=== PATIENT | female | born 1990 | race Caucasian/White ===

== ENCOUNTER → 2016-08-01 | Outpatient (CLI) | payer BC ==
[~2016-08-01] MED LIST: ACET325T33 PO; AZIT250T94 PO; FAMO40TA52 PO; IBUP-1542 PO; IBUP800T25 PO; NPH10OT RIGHT EAR; PERCOCET PO; PREN-39 PO
[2016-08-01 16:35] LABS: ADD SCAN DIFF NO
[2016-08-01 16:38] LABS: BASOPHILS % 0.3 % (0.0-2.0); EOSINOPHILS # 0.2 10^3/ul (0.0-0.5); EOSINOPHILS % 1.6 % (0.0-7.0); HEMOGLOBIN 12.4 g/dl (12.0-16.0); LYMPHOCYTES % 25.6 % (15.0-51.0); MEAN CORPUSCULAR HEMOGLOBIN 28.6 pg (29.0-33.0); MEAN CORPUSCULAR HGB CONC 32.6 g/dl (32.0-37.0); MEAN CORPUSCULAR VOLUME 87.6 fl (82.0-101.0); MEAN PLATELET VOLUME 11.3 fl (7.4-10.4); MONOCYTE # 0.6 10^3/ul (0.3-0.9); MONOCYTES % 4.9 % (0.0-11.0); NEUTROPHIL # 7.8 10^3/ul (1.6-7.5); NEUTROPHILS % 67.3 % (39.0-77.0); PLATELET COUNT 249 10^3/UL (140-415); RED BLOOD COUNT 4.34 10^6/ul (4.20-5.40); RED CELL DISTRIBUTION WIDTH 13.1 % (11.5-14.5); WHITE BLOOD COUNT 11.6 10^3/ul (4.8-10.8)
[2016-08-01 16:43] LABS: ADD UMIC YES; URINE BILIRUBIN (Dip) NEGATIVE (NEGATIVE); URINE BLOOD (Dip) NEGATIVE (NEGATIVE); URINE COLOR LT. YELLOW (YELLOW); URINE GLUCOSE (Dip) NEGATIVE (NEGATIVE); URINE KETONES (Dip) NEGATIVE (NEGATIVE); URINE LEUKOCYTE ESTERASE (Dip) 1+ (NEGATIVE); URINE NITRITE (Dip) NEGATIVE (NEGATIVE); URINE TOTAL PROTEIN (Dip) NEGATIVE (NEGATIVE); URINE UROBILINOGEN (Dip) 0.2 E.U./dL (0.1-1.0)
[2016-08-01 16:52] LABS: BACTERIA,URINE MODERATE; URINE RBCS 0-2 /HPF (0)
[2016-08-01 17:00] LABS: ALBUMIN 4.1 g/dl (3.3-4.9); ALBUMIN/GLOBULIN RATIO 1.1; BILIRUBIN,INDIRECT 0.3 mg/dl (0-1.1); BILIRUBIN,TOTAL 0.3 mg/dl (0.2-1.3); CREATININE 0.68 mg/dl (0.44-1.00); POTASSIUM 4.3 mmol/L (3.5-5.1); TOTAL PROTEIN 7.8 g/dl (6.1-8.1)
== END | disposition home or self-care (01) ==
LOC: LAB 16:22
PROVIDERS: ATTEND Internal Medicine
DX: R31.9 Hematuria, unspecified (principal)
CPT/HCPCS: 80053; 81001; 81003; 85025

== ENCOUNTER 2016-09-10 06:20 | Day surgery (SDC) | payer BC ==
[~2016-09-10] VITALS: Ht 157.5 cm; Wt 61.3 kg
[2016-09-10 06:51] VITALS: Ht 157.5 cm; Wt 61.3 kg
[2016-09-10] MEDS ORDERED: LIDOCAINE 2% (SDV) 5 ML INJ ONE (07:59)
[2016-09-10] MEDS ORDERED: MIDAZOLAM 1 MG/ML 2 ML INJ ONE (07:59)
[2016-09-10] MEDS ORDERED: PROPOFOL 20 ML ONE (07:59)
[2016-09-10 08:02] VITALS: BP 108/67; PULSE 76; RESP 18
--- NOTE | 2016-09-10 10:32 | GILP ---
DATE OF PROCEDURE: 09/10/2016 NAME OF PROCEDURE: Esophagogastroduodenoscopy and biopsy. SURGEON: James Kelelr MD PREOPERATIVE DIAGNOSES: 1. Abdominal pain. 2. Chronic heartburn. POSTOPERATIVE DIAGNOSES: 1. Gastroesophageal reflux disease. 2. Gastritis with erosions. 3. Gastric mucosal biopsies were taken for Helicobacter pylori test. INDICATION FOR THE PROCEDURE: Ms. Susie Ramesh is a 26-year-old female patient who had up per abdominal pain and chronic heartburn, not responding to therapy. The patient was scheduled for endoscopic examination for further evaluation. The procedure and possible complications were well explained to the patient, she understood and cons ented to the procedure. DESCRIPTION OF PROCEDURE: Under the influence of anesthesia, the gastroscope was carefully introduc ed into the esophagus and under direct vision, it was advanced to the stomach and through the pyloru s into the duodenal bulb and descending duodenum. FINDINGS: ESOPHAGUS: The patient had gastroesophageal reflux disease. The esophageal mucosa was normal. The re was no inflammation, erosions or ulceration. STOMACH: The patient had gastritis with erosions. Gastric mucosal biopsies were taken for H. pylor i test. DUODENUM: Normal. She tolerated the procedure very well and there was no complication from the procedure. At the end of the procedure, she was awake with stable vital signs and she was discharged home to the care of h er family. IMPRESSION: 1. Gastroesophageal reflux disease. 2. Gastritis with erosions. 3. Gastric mucosal biopsies were taken for Helicobacter pylori test. PLAN: 1. Pantoprazole 40 mg p.o. q.a.m. 2. Await H. pylori test report. Dictated By: JAMES COLEY/PRACHI Conf#: [id number] DID#: [id number] CC: JAMES KELLER MD;*EndCC*
== END 2016-09-10 10:39 | disposition home or self-care (01) ==
LOC: GIL 06:20
PROVIDERS: ATTEND Internal Medicine Gastroenterology
DX: K21.9 Gastro-esophageal reflux disease without esophagitis (principal); K29.60 Other gastritis without bleeding
CPT/HCPCS: 43239; 84703; 87081; J2250

== ENCOUNTER → 2017-04-07 | Outpatient (CLI) | END | disposition home or self-care (01) ==

== ENCOUNTER → 2017-04-20 | Outpatient (CLI) | END | disposition home or self-care (01) ==

== ENCOUNTER 2017-05-08 07:25 | Day surgery (SDC) | END 2017-05-08 11:18 | disposition home or self-care (01) ==

== ENCOUNTER 2017-09-03 12:08 | Emergency (ER) | END 2017-09-03 13:20 | disposition home or self-care (01) ==

== ENCOUNTER → 2017-10-19 | Outpatient (CLI) | END | disposition home or self-care (01) ==

== ENCOUNTER 2018-02-16 17:17 | Emergency (ER) | END 2018-02-16 18:39 | disposition home or self-care (01) ==

== ENCOUNTER 2018-03-22 16:20 | Emergency (ER) | payer BC ==
[~2018-03-22] VITALS: Ht 160 cm; Wt 68.5 kg
[~2018-03-22 16:20] MED LIST changes: +ACET500C5 PO; +ALBU8.5H8 INH; +AZIT250T PO; -AZIT250T94 PO; +CEPH500C PO; +CETI10CA PO; -FAMO40TA52 PO; +HYDR-4011 PO; -IBUP800T25 PO; +MELO7.5T38 PO; -NPH10OT RIGHT EAR; -PERCOCET PO; -PREN-39 PO; +PROM6.2515 PO; +PSEU120T11 PO
[2018-03-22 16:26] VITALS: BP 111/69; PULSE 105; RESP 20; Ht 160 cm; Wt 68.5 kg
--- NOTE | 2018-03-22 18:02 | ERD ---
ER Documentation Chief Complaint Chief Complaint ST worse today; recently has flu/cough HPI 27-year-old female, presents the emergency department, complaining of worsening of sore throat for 2 days. The patient had 1 week with upper respiratory symptoms including cough and runny nose, she was getting better until 2 days ago, when she developed fever, headache and sore throat. The patient has been taking ibuprofen and Tylenol with mild improvement of the symptoms. ROS All systems reviewed and are negative except as per history of present illness. Medications Home Meds Active Scripts Loratadine* (Loratadine*) 10 Mg Tablet, 10 MG PO DAILY, #12 TAB Prov:JANN HICKEY MD 03/22/18 Azithromycin* (Zithromax*) 250 Mg Tablet, 250 MG PO .ZPAJODY DIRECTED, #6 TAB TAKE 500 MG (2 TABS) THE FIRST DAY THEN 250 MG (1 TAB) DAYS 2-5 Prov:JANN HICKEY MD 03/22/18 Ibuprofen* (Motrin*) 600 Mg Tab, 600 MG PO Q6, #30 TAB Prov:DISHA LEIJA PA-C 02/16/18 Cephalexin* (Cephalexin*) 500 Mg Capsule, 500 MG PO Q6 for 7 Days, #28 CAP Prov:DISHA LEIJA PA-C 02/16/18 Azithromycin* (Zithromax*) 250 Mg Tablet, 250 MG PO .AleksandarPAJODY DIRECTED, #6 TAB TAKE 500 MG (2 TABS) THE FIRST DAY THEN 250 MG (1 TAB) DAYS 2-5 Prov:MUMTAZ GREEN PA-C 09/03/17 Acetaminophen* (Tylenol*) 325 Mg Tablet, 2 TAB PO Q6 PRN for PAIN AND OR ELEVATED TEMP, #30 TAB Prov:MUMTAZ GREEN PA-C 09/03/17 Pseudoephedrine Hcl (Sudafe 12-Hour) 120 Mg Tablet.er, 120 MG PO BID PRN for CONGESTION, #10 TAB.SA Prov:MUMTAZ GREEN PA-C 09/03/17 Cetirizine Hcl* (Zyrtec*) 10 Mg Capsule, 10 MG PO DAILY, #30 TAB.CHEW Prov:MUMTAZ GREEN PA-C 09/03/17 Promethazine Hcl* (Promethazine Hcl* Syrup) 6.25 Mg/5 Ml Syrup, 6.25 MG PO Q6H PRN for COUGH, #60 ML Prov:MUMTAZ GREEN PA-C 09/03/17 Albuterol Sulfate* (Proair HFA*) 8.5 Gm Hfa.aer.ad, 2 PUFF INH Q4H PRN for WHEEZING AND SOB, #1 INHALER Prov:MUMTAZ GREEN PA-C 09/03/17 Hydrocodone/Acetaminophen ([place] 5-325 Tablet) 1 Each Tablet, 1 TAB PO Q6H PRN for PAIN, #10 TAB Prov:DISHA LEIJA PA-C 08/01/17 Meloxicam* (Meloxicam*) 7.5 Mg Tablet, 7.5 MG PO DAILY, #30 TAB Prov:DISHA LEIJA PA-C 08/01/17 Acetaminophen* (Tylophen*) 500 Mg Capsule, 1 CAP PO Q6H PRN for PAIN AND OR ELEVATED TEMP, #20 CAP Prov:NIKIA ASKEW PA-C 07/26/17 Reported Medications [None] No Conflict Check 09/10/16 Allergies Allergies: Coded Allergies: No Known Allergies (Verified Allergy, Mild, 02/16/18) PMhx/Soc History of Surgery: Yes (LAP APPENDECTOMY, removal of ovarian cyst) Anesthesia Reaction: No Hx Neurological Disorder: No Hx Respiratory Disorders: No Hx Cardiac Disorders: No Hx Psychiatric Problems: Yes (ANXIETY) Hx Miscellaneous Medical Probl: No Hx Alcohol Use: Yes (occassionally) Hx Substance Use: No Hx Tobacco Use: No Smoking Status: Never smoker Physical Exam Vitals Vital Signs Date Temp Pulse Resp B/P (MAP) Pulse Ox O2 O2 Flow FiO2 Time Delivery Rate 03/22/18 98.3 105 20 111/69 99 16:26 (83) Physical Exam Const: No acute distress Head: Atraumatic Eyes: Normal Conjunctiva ENT: Erythematous oropharynx, tonsils enlarged, with bilateral exudates. Neck: Full range of motion. No meningismus. Resp: Clear to auscultation bilaterally Cardio: Regular rate and rhythm, no murmurs Abd: Soft, non tender, non distended. Normal bowel sounds Skin: No petechiae or rashes Back: No midline or flank tenderness Ext: No cyanosis, or edema Neur: Awake and alert Psych: Normal Mood and Affect Procedures/MDM Differential diagnosis include but not limited to: Tonsillar/pharyngeal infection bacterial/viral/fungal, parotitis, allergies, GERD. Less likely peritonsillar abscess, retropharyngeal abscess. No signs of upper respiratory obstruction Physical examination and clinical presentation consistent most likely with acute suppurative tonsillitis. Centor criteria 4/5. During the ED course the patient remained stable, fever resolved with medications given in the ER, no new complaints. Clinical impression discussed with patient who agrees with management. The patient is stable to be treated outpatient and will be discharged home with a Rx for antibiotic and ibuprofen. Some side effects of prescribed medications (headache, rash, nausea, vomiting, diarrhea, drowsiness, habituation, bleeding, hypertension, interactions with other medications) were reviewed. The patient was instructed to follow up with the primary care provider in the next 48h. If symptoms persist, worsen or new symptoms develop, then patient should return to the ED immediately. Disclaimer: Inadvertent spelling and grammatical errors are likely due to EHR/dictation software use and do not reflect on the overall quality of patient care. Also, please note that the electronic time recorded on this note does not necessarily reflect the actual time of the patient encounter. Departure Diagnosis: Primary Impression: Acute suppurative tonsillitis Condition: Stable Additional Instructions: Thank you very much for allowing us to participate in your care. Your health and safety is our top priority at [facility]. Call your primary care doctor TOMORROW for an appointment during the next 2-4 days and bring all the information and medications prescribed. Have prescriptions filled and follow precisely the directions on the label. If the symptoms get worse and your provider is unavailable, return to the Emergency Department immediately. JANN HICKEY MD Mar 22, 2018 18:02
[2018-03-22] MEDS ORDERED: LORA10TA3 PO (18:03)
[2018-03-22] MEDS ORDERED: AZIT250T PO (18:03)
== END 2018-03-22 18:17 | disposition home or self-care (01) ==
LOC: FTE 16:20
DX: J03.90 Acute tonsillitis, unspecified (principal)
CPT/HCPCS: 99283

== ENCOUNTER → 2018-05-14 | Outpatient (CLI) | payer BC ==
[~2018-05-14] MED LIST changes: +LORA10TA3 PO
== END | disposition home or self-care (01) ==
LOC: LAB 07:16
PROVIDERS: ATTEND Internal Medicine
DX: D64.9 Anemia, unspecified (principal); R73.03 Prediabetes; E55.9 Vitamin D deficiency, unspecified
CPT/HCPCS: 80053; 82306; 83036; 85025; 85651

== ENCOUNTER 2018-07-14 15:59 | Emergency (ER) | payer BC ==
[~2018-07-14] VITALS: Ht 162.6 cm; Wt 65.1 kg
[2018-07-14 16:12] VITALS: Ht 162.6 cm; Wt 65.1 kg
[2018-07-14] MEDS ORDERED: KETOROLAC 30 MG INJ IM STA (16:37)
--- NOTE | 2018-07-14 16:52 | ERD ---
ER Documentation Chief Complaint Chief Complaint R side abd pain ; nauseated; was recently diagnosed with fibroids HPI 27-year-old female with past medical history of ovarian cysts requiring multiple laparoscopic interventions, cholecystectomy who presents with complaint of right lower quadrant abdominal pain since Thursday. Pain describes sharp pain localized right lower quadrant without radiation, associated with nausea but no episodes of vomiting or diarrhea. She denies fevers, chills, shortness of breath, urinary symptoms. Last menstrual period ended about 2 to 3 weeks ago no reported as normal flow. Reports relatively good health prior to this episode. States she presented to her [facility] yesterday and had an ultrasound and diagnosed with fibroids with transvaginal ultrasound not showing any abnormalities. Since that time pain has continued to worsen thus prompting emergency room presentation. Patient states she took Tylenol which only modestly improved her pain. ROS All systems reviewed and are negative except as per history of present illness. Medications Home Meds Active Scripts Acetaminophen* (Tylophen*) 500 Mg Capsule, 1 CAP PO Q6H PRN for PAIN AND OR ELEVATED TEMP, #20 CAP Prov:CRISS MCLEAN PA-C 07/14/18 Ondansetron Hcl* (Zofran*) 4 Mg Tablet, 4 MG PO Q6H for NAUSEA AND/OR VOMITING, #14 TAB Prov:CRISS MCLEAN PA-C 07/14/18 Loratadine* (Loratadine*) 10 Mg Tablet, 10 MG PO DAILY, #12 TAB Prov:JANN HICKEY MD 03/22/18 Azithromycin* (Zithromax*) 250 Mg Tablet, 250 MG PO .HARVEY DIRECTED, #6 TAB TAKE 500 MG (2 TABS) THE FIRST DAY THEN 250 MG (1 TAB) DAYS 2-5 Prov:JANN HICKEY MD 03/22/18 Ibuprofen* (Motrin*) 600 Mg Tab, 600 MG PO Q6, #30 TAB Prov:DISHA LEIJA PA-C 02/16/18 Cephalexin* (Cephalexin*) 500 Mg Capsule, 500 MG PO Q6 for 7 Days, #28 CAP Prov:DISHA LEIJA PA-C 02/16/18 Azithromycin* (Zithromax*) 250 Mg Tablet, 250 MG PO .AleksandarPAJODY DIRECTED, #6 TAB TAKE 500 MG (2 TABS) THE FIRST DAY THEN 250 MG (1 TAB) DAYS 2-5 Prov:MUMTAZ GREEN PA-C 09/03/17 Acetaminophen* (Tylenol*) 325 Mg Tablet, 2 TAB PO Q6 PRN for PAIN AND OR ELEVATED TEMP, #30 TAB Prov:MUMTAZ GREEN PA-C 09/03/17 Pseudoephedrine Hcl (Sudafe 12-Hour) 120 Mg Tablet.er, 120 MG PO BID PRN for CONGESTION, #10 TAB.SA Prov:MUMTAZ GREEN PA-C 09/03/17 Cetirizine Hcl* (Zyrtec*) 10 Mg Capsule, 10 MG PO DAILY, #30 TAB.CHEW Prov:MUMTAZ GREEN PA-C 09/03/17 Promethazine Hcl* (Promethazine Hcl* Syrup) 6.25 Mg/5 Ml Syrup, 6.25 MG PO Q6H PRN for COUGH, #60 ML Prov:MUMTAZ GREEN PA-C 09/03/17 Albuterol Sulfate* (Proair HFA*) 8.5 Gm Hfa.aer.ad, 2 PUFF INH Q4H PRN for WHEEZING AND SOB, #1 INHALER Prov:MUMTAZ GREEN PA-C 09/03/17 Hydrocodone/Acetaminophen ([place] 5-325 Tablet) 1 Each Tablet, 1 TAB PO Q6H PRN for PAIN, #10 TAB Prov:DISHA LEIJA PA-C 08/01/17 Meloxicam* (Meloxicam*) 7.5 Mg Tablet, 7.5 MG PO DAILY, #30 TAB Prov:DISHA LEIJA PA-C 08/01/17 Acetaminophen* (Tylophen*) 500 Mg Capsule, 1 CAP PO Q6H PRN for PAIN AND OR ELEVATED TEMP, #20 CAP Prov:NIKIA ASKEW PA-C 07/26/17 Reported Medications [None] No Conflict Check 09/10/16 Allergies Allergies: Coded Allergies: No Known Allergies (Verified Allergy, Mild, 02/16/18) PMhx/Soc History of Surgery: Yes (LAP APPENDECTOMY, removal of ovarian cyst) Anesthesia Reaction: No Hx Neurological Disorder: No Hx Respiratory Disorders: No Hx Cardiac Disorders: No Hx Psychiatric Problems: Yes (ANXIETY) Hx Miscellaneous Medical Probl: No Hx Alcohol Use: Yes (occassionally) Hx Substance Use: No Hx Tobacco Use: No FmHx Family History: No diabetes, No coronary disease, No other Physical Exam Vitals Vital Signs Date Temp Pulse Resp B/P (MAP) Pulse Ox O2 O2 Flow FiO2 Time Delivery Rate 07/14/18 98.8 87 20 130/78 99 16:12 (95) Physical Exam I have reviewed the triage vital signs. Const: Well nourished, well developed, appears stated age Eyes: PERRL, no conjunctival injection HENT: NCAT, Neck supple without meningismus CV: RRR, Warm, well-perfused extremities RESP: CTAB, Unlabored respiratory effort GI: soft, tender to RLQ, no rebound but some guarding, non-distended, no masses MSK: No gross deformities appreciated Skin: Warm, dry. No rashes Neuro: grossly non focal Psych: Appropriate mood and affect. Result Diagram: 07/14/18 1703 07/14/18 1703 Results 24 hrs Laboratory Tests Test 07/14/18 16:57 07/14/18 16:58 07/14/18 17:03 Urine Color YELLOW Urine Clarity SLIGHTLY CLOUDY Urine pH 5.0 Urine Specific [place] 1.021 Urine Ketones TRACE mg/dL Urine Nitrite NEGATIVE mg/dL Urine Bilirubin NEGATIVE mg/dL Urine Urobilinogen NEGATIVE mg/dL Urine Leukocyte Esterase NEGATIVE Trudy/ul Urine Microscopic RBC 4 /HPF Urine Microscopic WBC 6 /HPF Urine Squamous Epithelial Cells FEW /HPF Urine Bacteria FEW /HPF Urine Hemoglobin 1+ mg/dL Urine Glucose NEGATIVE mg/dL Urine Total Protein NEGATIVE mg/dl POC Beta HCG, Qualitative NEGATIVE White Blood Count 10.4 10^3/ul Red Blood Count 4.75 10^6/ul Hemoglobin 13.1 g/dl Hematocrit 41.0 % Mean Corpuscular Volume 86.3 fl Mean Corpuscular Hemoglobin 27.6 pg Mean Corpuscular 32.0 g/dl Hemoglobin Concent Red Cell Distribution Width 12.4 % Platelet Count 267 10^3/UL Mean Platelet Volume 11.3 fl Immature Granulocytes % 0.300 % Neutrophils % 65.2 % Lymphocytes % 26.4 % Monocytes % 5.9 % Eosinophils % 1.8 % Basophils % 0.4 % Nucleated Red Blood Cells % 0.0 /100WBC Immature Granulocytes # 0.030 10^3/ul Neutrophils # 6.8 10^3/ul Lymphocytes # 2.7 10^3/ul Monocytes # 0.6 10^3/ul Eosinophils # 0.2 10^3/ul Basophils # 0.0 10^3/ul Nucleated Red Blood Cells # 0.0 10^3/ul Sodium Level 142 mmol/L Potassium Level 4.0 mmol/L Chloride Level 104 mmol/L Carbon Dioxide Level 27 mmol/L Anion Gap 11 Blood Urea Nitrogen 9 mg/dl Creatinine 0.61 mg/dl Est Glomerular Filtrat > 60 mL/min Rate mL/min Glucose Level 91 mg/dl Calcium Level 9.7 mg/dl Total Bilirubin 0.3 mg/dl Direct Bilirubin 0.00 mg/dl Indirect Bilirubin 0.3 mg/dl Aspartate Amino 21 IU/L Transf (AST/SGOT) Alanine 8 IU/L Aminotransferase (ALT/SGPT) Alkaline Phosphatase 101 IU/L Total Protein 8.6 g/dl Albumin 4.8 g/dl Globulin 3.80 g/dl Albumin/Globulin Ratio 1.26 Lipase 76 U/L Current Medications Medications Dose Sig/Thor Start Time Status Last (Trade) Ordered Route PRN Stop Time Admin Dose Reason Admin Ketorolac 30 mg ONCE STAT 07/14/18 DC 07/14/18 Tromethamine IM 16:37 17:13 (Toradol) 07/14/18 16:39 Ondansetron 4 mg ONCE ONCE 07/14/18 DC 07/14/18 HCl (Zofran PO 17:00 17:27 Tab) 07/14/18 17:01 Procedures/MDM 27-year-old female presents with right lower quadrant abdominal pain of unclear etiology. A CT scan was performed to evaluate for potential causes of the abdom inal pain, however, neither the clinical exam nor the CT has identified an emergent etiology for the abdominal pain. Specifically, given the benign exam, the laboratory studies, and unremarkable CT, I have a very low suspicion for appendicitis, ischemic bowel, bowel perforation, or any other life threatening disease. I have discussed with the patient the level of uncertainty with undifferentiated abdominal pain and clearly explained the need to follow-up as noted on the discharge instructions, or return to the Emergency Department immediately if the pain worsens, develops fever, persistent and uncontrollable vomiting, or for any new symptoms or concerns. ED work-up: CT scan without clear etiology to explain symptoms, 3 mm nonobstructing stone right kidney otherwise unremarkable UA unremarkable CBC within normal limits with no elevated WBC count Lipase within normal limits CMP within normal limits Plan: Zofran, Tylenol for pain, return to emergency room 8 to 12 hours for reexamination DISPOSITION PLAN: We discussed follow up with the patient's primary care doctor within 24 to 48 h ours. Patient counseled regarding my diagnostic impression and care plan. Prior to discharge all questions answered. Pt agrees with treatment plan and understands strict return precautions. Precautionary instructions provided including instructions to return to the ER if not improving or for any worsening or changing symptoms or concerns. Disclaimer: Inadvertent spelling and grammatical errors are likely due to EHR/dictation software use and do not reflect on the overall quality of patient care. Also, please note that the electronic time recorded on this note does not necessarily reflect the actual time of the patient encounter. Departure Diagnosis: Primary Impression: Abdominal pain Condition: Stable CRISS MCLEAN PA-C Jul 14, 2018 16:52
[2018-07-14] MEDS ORDERED: ONDANSETRON 4 MG TAB PO ONE (17:00)
[2018-07-14] MEDS ORDERED: ONDA4TAB8 PO (18:15)
[2018-07-14] MEDS ORDERED: ACET500C5 PO (18:16)
[2018-07-14 18:25] VITALS: BP 102/69; PULSE 80; RESP 18
== END 2018-07-14 18:26 | disposition home or self-care (01) ==
LOC: FTE 15:59
DX: R10.31 Right lower quadrant pain (principal); R11.0 Nausea
CPT/HCPCS: 36415; 74176; 80053; 81001; 81025; 83690; 85025; 96372; 99285; J1885

== ENCOUNTER → 2018-07-16 | Outpatient (CLI) | payer BC ==
[~2018-07-16] MED LIST changes: +ONDA4TAB8 PO
== END | disposition home or self-care (01) ==
LOC: LAB 12:00
PROVIDERS: ATTEND Internal Medicine
DX: N39.0 Urinary tract infection, site not specified (principal)
CPT/HCPCS: 80048; 81003; 85025; 87086

== ENCOUNTER → 2018-11-01 | Outpatient (CLI) | payer BC | END | disposition home or self-care (01) | LOC: LAB 16:16 | PROVIDERS: ATTEND Obstetrics & Gynecology | DX: O20.0 Threatened abortion (principal); Z3A.00 Weeks of gestation of pregnancy not specified | CPT/HCPCS: 84702 ==

== ENCOUNTER → 2018-11-10 | Outpatient (CLI) | payer BC ==
[~2018-11-10] MED LIST changes: +ACET1TAB40 PO; +NALO4SPR NS
== END | disposition home or self-care (01) ==
LOC: LAB 15:01
PROVIDERS: ATTEND Obstetrics & Gynecology
DX: O20.0 Threatened abortion (principal); Z3A.00 Weeks of gestation of pregnancy not specified
CPT/HCPCS: 84144; 84702

== ENCOUNTER 2018-11-12 10:21 | Day surgery (SDC) | payer BC ==
[2018-11-11 16:26] VITALS: BMI 25.3
[~2018-11-12] VITALS: Ht 157.5 cm; Wt 65.8 kg
[2018-11-12] VITALS (18 sets, daily range): BP systolic 94–110; BP diastolic 52–67; PULSE 72–86; RESP 12–25; Ht 157.5 cm; Wt 65.8 kg
[~2018-11-12 10:21] MED LIST changes: +LACTATED RINGER'S 1,000 ML IV SCH
[2018-11-12] MEDS ORDERED: DEXAMETHASONE 4 MG/ML 5 ML INJ ONE (12:15)
[2018-11-12] MEDS ORDERED: METOCLOPRAMIDE 10 MG INJ ONE (12:15)
[2018-11-12] MEDS ORDERED: PROPOFOL 20 ML ONE (12:15)
[2018-11-12] MEDS ORDERED: KETOROLAC 30 MG INJ ONE (12:15)
[2018-11-12] MEDS ORDERED: MIDAZOLAM 1 MG/ML 2 ML INJ ONE (12:15)
[2018-11-12] MEDS ORDERED: FENTAnyl 50 MCG/ML VIAL ONE (12:15)
[2018-11-12] MEDS ORDERED: CEFAZOLIN 1 GM INJ ONE (12:15)
[2018-11-12] MEDS ORDERED: ONDANSETRON 4 MG INJ ONE (12:15)
[2018-11-12] MEDS ORDERED: FENTAnyl 50 MCG/ML VIAL IV PRN ×3 (12:30)
[2018-11-12] MEDS ORDERED: OXYCODONE/ACETAMINOPHEN (5/325) TAB PO PRN (12:30)
[2018-11-12] MEDS ORDERED: METOCLOPRAMIDE 10 MG INJ IV PRN (12:30)
[2018-11-12] MEDS ORDERED: HYDROmorphONE 1 MG/5 ML IV SYRINGE IV PRN ×3 (12:30)
[2018-11-12] MEDS ORDERED: ONDANSETRON 4 MG INJ IV PRN (12:30)
[2018-11-12] MEDS ORDERED: EPHEDrine 25 MG/5 ML SYG IV PRN (12:30)
[2018-11-12] MEDS ORDERED: KETOROLAC 30 MG INJ IV STA (14:33)
== END 2018-11-12 15:45 | disposition home or self-care (01) ==
LOC: SDS 10:21
PROVIDERS: ATTEND Obstetrics & Gynecology
DX: O02.1 Missed abortion (principal); Z3A.01 Less than 8 weeks gestation of pregnancy
CPT/HCPCS: 59820; J0690; J1100; J1170; J1885; J2250; J2405; J2765; J3010; 88305; 88342

== ENCOUNTER 2018-11-17 16:58 | Emergency (ER) | payer BC ==
[~2018-11-17] VITALS: Ht 157.5 cm; Wt 66.0 kg
[~2018-11-17 16:58] MED LIST changes: -ACET325T33 PO; -ALBU8.5H8 INH; -AZIT250T PO; -CEPH500C PO; -CETI10CA PO; -HYDR-4011 PO; -LACTATED RINGER'S 1,000 ML IV SCH; -LORA10TA3 PO; -MELO7.5T38 PO; -ONDA4TAB8 PO; +PENI500T PO; -PROM6.2515 PO; -PSEU120T11 PO
[2018-11-17 17:01] VITALS: Ht 157.5 cm; Wt 66.0 kg
[2018-11-17] MEDS ORDERED: KETOROLAC 30 MG INJ IM STA (17:33)
[2018-11-17 21:00] VITALS: BP 120/70; PULSE 74; RESP 16
== END 2018-11-17 21:00 | disposition home or self-care (01) ==
LOC: FTE 16:58
DX: N93.9 Abnormal uterine and vaginal bleeding, unspecified (principal)
CPT/HCPCS: 76830; 76856; 81001; 84702; 87086; J1885; 36415; 96372

== ENCOUNTER → 2018-11-24 | Outpatient (CLI) | payer BC ==
[~2018-11-24] MED LIST changes: -IBUP-1542 PO; -PENI500T PO
== END | disposition home or self-care (01) ==
LOC: LAB 14:05
PROVIDERS: ATTEND Internal Medicine
DX: O01.0 Classical hydatidiform mole (principal)
CPT/HCPCS: 84702